=== PATIENT | female | born 2000 | race Hispanic/Latino ===

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

== ENCOUNTER 2020-02-07 22:48 | Inpatient (IN) | payer MEDICAID ==
[~2020-02-07] VITALS: Ht 154.9 cm; Wt 70.1 kg
[~2020-02-07 22:48] MED LIST: DOXY25TA61 PO; ONDA4TAB4 PO; PREN1TAB63 PO
[2020-02-07 23:17] LABS: APPEARANCE,URINE Cloudy (CLEAR); BILIRUBIN,URINE Negative (NEGATIVE); COLOR,URINE Yellow (YELLOW); GLUCOSE, URINE (UA) Negative (NEGATIVE); KETONES,URINE Negative (NEGATIVE); LEUKOCYTE ESTERASE ,URINE Moderate (NEGATIVE); NITRATE,URINE Negative (NEGATIVE); OCCULT BLOOD,URINE Nonhemolyzed Trace (NEGATIVE); PH,URINE 5.5 (5.0-8.0); PROTEIN,URINE POS 1+ mg/dL (NEGATIVE); UROBILINOGEN,URINE 0.2 mg/dL (0.2-1.0)
[2020-02-07 23:19] LABS: HCG,QUAL RESULT NEGATIVE (NEGATIVE)
[2020-02-07 23:27] LABS: BASOPHILS % (AUTO) 0.5 % (0.0-5.0); EOSINOPHILS % (AUTO) 0.5 % (0.0-8.0); HEMATOCRIT 34.6 % (36-48); LYMPHOCYTES % (AUTO) 30.1 % (21.0-51.0); MEAN CORPUSCULAR HEMOGLOBIN 24.7 pg (27.0-33.0); MEAN CORPUSCULAR HGB CONC 31.2 g/dL (32.0-36.0); MONOCYTES % (AUTO) 4.5 % (3.0-13.0); NEUTROPHILS % (AUTO) 63.6 % (40.0-77.0); PLATELET COUNT (AUTO) 394 K/uL (130-400); RED BLOOD CELL COUNT(AUTO) 4.38 MIL/uL (4.00-5.50); RED CELL DISTRIBUTION WIDTH 16.3 % (11.0-15.5); WHITE BLOOD COUNT (AUTO) 8.6 K/uL (4.8-10.8)
[2020-02-07 23:27] LABS: BACTERIA,URINE Few /HPF (None Seen); MUCUS,URINE Few LPF (None Seen); RBC,URINE 0-1 /HPF (0-1); SQUAMOUS EPITHELIAL CELL,UR Few /HPF (0-2)
[2020-02-07 23:50] LABS: POTASSIUM 3.6 mmol/L (3.5-5.1)
[2020-02-07 23:54] LABS: ALBUMIN 3.9 g/dL (3.5-5.0); BILIRUBIN,TOTAL 0.3 mg/dL (0.2-1.0); TOTAL PROTEIN, SERUM 8.3 g/dL (6.0-8.3)
[2020-02-08] MEDS ORDERED: METOCLOPRAMIDE 10 MG/2 ML VIAL ONE (03:01)
[2020-02-08] MEDS ORDERED: ZOSYN 3.375GM+NS 50ML 50 ML IV ONE (03:14)
[2020-02-08] MEDS ORDERED: ACETAMINOPHEN 325 MG TAB PO PRN ×2 (04:30)
[2020-02-08] MEDS ORDERED: MEPERIDINE-PF 25 MG/ML SYG IV PRN (04:30)
[2020-02-08] MEDS ORDERED: ONDANSETRON HCL 4 MG/2 ML VIAL IV PRN (04:30)
[2020-02-08] MEDS ORDERED: MEPERIDINE-PF 50 MG/ML SYG IVP PRN (04:30)
[2020-02-08] MEDS: ZOSYN 3.375GM+NS 50ML 50 ML IV SCH ×3 (05:00→21:33)
[2020-02-08 05:30] VITALS: BP 144/75
[2020-02-08] MEDS ORDERED: PHARMACY COMMUNICATION MISC SCH (05:30)
[2020-02-08] MEDS: SODIUM CHLORIDE 0.9% 1000ML 1,000 ML IV SCH ×3 (06:05→21:32)
[2020-02-08 08:00] VITALS: BP 128/73
[2020-02-08] MEDS: FAMOTIDINE/PF 20 MG/2 ML VIAL IV SCH ×2 (09:56→21:32)
[2020-02-08 11:00] VITALS: BP 125/68
--- NOTE | 2020-02-08 14:43 | NUR ---
ELVA NOTE/IA MET WITH PATIENT AT BEDSIDE. PER PATIENT, LIVES WITH PARENTS, BROTHERS, SISTERS, HER CHILD AND EXTENSIVE FAMILY, INDEPENDENT WITH ADLS, NO USE OF DME, HAS A AT HOME, OBTAINS RIDE FROM PARENTS IF NEEDED AND FEEL SAFE TO DC HOME Addendum: 02/08/20 at 1445 by SAMEER AUGUSTINE RN CM Amended: Links added.
[2020-02-08 16:00] VITALS: BP 134/64
[2020-02-08 20:35] VITALS: BP 138/83
[2020-02-08 23:30] VITALS: BP 121/74
[2020-02-09 03:39] VITALS: BP 103/57
[2020-02-09] MEDS: ZOSYN 3.375GM+NS 50ML 50 ML IV SCH ×2 (04:23→13:00)
[2020-02-09 06:06] LABS: BASOPHILS % (AUTO) 0.9 % (0.0-5.0); EOSINOPHILS % (AUTO) 1.4 % (0.0-8.0); HEMATOCRIT 30.5 % (36-48); LYMPHOCYTES % (AUTO) 41.5 % (21.0-51.0); MEAN CORPUSCULAR HEMOGLOBIN 24.5 pg (27.0-33.0); MEAN CORPUSCULAR HGB CONC 30.8 g/dL (32.0-36.0); MEAN CORPUSCULAR VOLUME 79.6 fL (80-100); MONOCYTES % (AUTO) 6.5 % (3.0-13.0); NEUTROPHILS % (AUTO) 49.2 % (40.0-77.0); PLATELET COUNT (AUTO) 356 K/uL (130-400); RED BLOOD CELL COUNT(AUTO) 3.83 MIL/uL (4.00-5.50); RED CELL DISTRIBUTION WIDTH 16.5 % (11.0-15.5); WHITE BLOOD COUNT (AUTO) 5.7 K/uL (4.8-10.8)
[2020-02-09 06:21] LABS: BILIRUBIN,TOTAL 0.6 mg/dL (0.2-1.0); CREATININE 0.8 mg/dL (0.5-1.5); POTASSIUM 3.8 mmol/L (3.5-5.1); TOTAL PROTEIN, SERUM 6.6 g/dL (6.0-8.3)
[2020-02-09 07:52] VITALS: BP 120/85
[2020-02-09] MEDS: FAMOTIDINE 20MG TAB 20 MG TAB ONE ×2 (08:23→08:49)
[2020-02-09] MEDS ORDERED: ONDA4TAB4 PO (08:45)
[2020-02-09] MEDS ORDERED: ACET1TAB25 PO (08:45)
[2020-02-09] MEDS ORDERED: FAMOTIDINE 20MG TAB 20 MG TAB PO SCH (09:00)
[2020-02-09 11:40] VITALS: BP 132/79
[2020-02-09 16:06] VITALS: BP 104/66
--- NOTE | 2020-02-10 11:30 | NUR ---
Transitional Care - Post Discharge Note NO ANSWER at number listed for patient. Left a voicemail requesting callback. Addendum: 02/10/20 at 1130 by ORLY BRITO Amended: Links added.
== END 2020-02-09 17:45 | disposition home or self-care (01) | DRG 561 ==
LOC: EDH 22:48 → EDHIP 22:49 → 3CH 02-08 05:11
PROVIDERS: ADMIT Internal Medicine; ATTEND Internal Medicine
DX: O99.63 Diseases of the digestive system complicating the puerperium (principal); K80.20 Calculus of gallbladder without cholecystitis without obstruction; O90.89 Other complications of the puerperium, not elsewhere classified; R79.89 Other specified abnormal findings of blood chemistry; Z82.49 Family history of ischemic heart disease and other diseases of the circulatory system; Z90.49 Acquired absence of other specified parts of digestive tract
CPT/HCPCS: 36415; 74181; 76705; 80053; 81001; 81025; 83690; 84145; 85025; 87088; G0378; J2543; J2765; J3490; J7030